=== PATIENT | male | born 1950 | race Two or more races ===

== ENCOUNTER 2021-12-14 09:59 | Emergency (ER) | payer OTHER ==
[~2021-12-14] VITALS: Ht 170.2 cm; Wt 71.7 kg
[~2021-12-14 09:59] MED LIST: VITAMIN AND MIN
[2021-12-14] MEDS ORDERED: LIPITOR20 MG PO (10:15)
== END 2021-12-14 15:46 | disposition home or self-care (01) ==
LOC: ER 09:59
DX: R10.2 Pelvic and perineal pain (principal); Z85.46 Personal history of malignant neoplasm of prostate; Z88.6 Allergy status to analgesic agent; Z87.442 Personal history of urinary calculi

== ENCOUNTER 2024-04-14 09:11 | Outpatient (CLI) | payer OTHER ==
[~2024-04-14 09:11] MED LIST changes: +LIPITOR20 MG PO
== END 2024-04-14 09:15 | disposition home or self-care (01) ==
LOC: SONOGRAMA 09:11
PROVIDERS: ATTEND Pathology Anatomic Pathology & Clinical Pathology
DX: D34 Benign neoplasm of thyroid gland (principal); E07.89 Other specified disorders of thyroid; E04.1 Nontoxic single thyroid nodule